=== PATIENT | male | born 1990 | race Caucasian/White ===

== ENCOUNTER 2019-10-19 19:47 | Emergency (ER) | payer SELFPAY ==
[~2019-10-19] VITALS: Ht 185.4 cm; Wt 107.0 kg
--- NOTE | 2019-10-19 19:50 | PHYS DOC ---
Past History Past Medical History: Cancer Past Medical History Osteosarcoma of Lt Leg- S/P Chemo, Radiation and Amputation Past Surgical History: Cancer Surgery Past Surgical History Amputation Lt leg BK- age 18 Smoking: Cigarettes Alcohol Use: Occasionally Drug Use: Marijuana General Adult HPI: HPI: ".. I feel like I got the flu or something.. not right for a week.. much more short of breath.. to the point.. I ve quit smoking both tobacco.. and marijuana... .. I just really short of breath... with any activity..." Patient is a 29 year old male who presents with above hx and complaints of generalized malaise, myalgia, arthralgia, dyspnea, nonproductive cough, and generalized arthralgia. Patient does smoke tobacco marijuana which he has stopped because of dyspnea. Patient has significant medical history of a left lower leg soft tissue tumor that underwent chemo, radiation and eventual amputation of the left lower leg at age 18. Patient denies any history of DVT but there is a history of DVTs with mother and and a great uncle. Patient does not vape. Patient does not do seasonal flu shots. No recent travel outside the [place] area. No history of specific ill contacts. No history immunosuppression. Review of Systems: Review of Systems: Constitutional: Complains of fever or chills Eyes: Denies change in visual acuity HENT: Denies nasal congestion or sore throat Respiratory: Complaints of cough and shortness of breath Cardiovascular: Denies chest pain or edema GI: Denies abdominal pain, , vomiting, bloody stools or diarrhea . Complains of nausea : Denies dysuria Musculoskeletal: Denies back pain or joint pain Integument: Denies rash Neurologic: Denies headache, focal weakness or sensory changes Endocrine: Denies polyuria or polydipsia Lymphatic: Denies swollen glands Psychiatric: Denies depression or anxiety Heart Score: Risk Factors: Risk Factors: DM, Current or recent (<one month) smoker, HTN, HLP, family history of CAD, obesity. Risk Scores: Score 0 - 3: 2.5% MACE over next 6 weeks - Discharge Home Score 4 - 6: 20.3% MACE over next 6 weeks - Admit for Clinical Observation Score 7 - 10: 72.7% MACE over next 6 weeks - Early Invasive Strategies Family History: Family History: DVT with mother and great uncle Current Medications: Current Meds: See nursing for home medications Allergies: Allergies: No known drug allergies Physical Exam: PE: Constitutional: Well developed, well nourished, no acute distress, non-toxic appearance. [] HENT: Normocephalic, atraumatic, bilateral external ears normal, oropharynx moist, mild postnasal drainage and erythremia, no oral exudates, nose slightly swollen turbinates and clear rhinorrhea Eyes: PERRLA, EOMI, conjunctiva normal, no discharge. [] Neck: Normal range of motion, no tenderness, supple, no stridor. [] Cardiovascular:Heart rate regular rhythm, no murmur [] Lungs & Thorax: Bilateral breath sounds equal at apex with few scattered wheezes throughout on auscultation [] Abdomen: Bowel sounds normal, soft, no tenderness, no masses, no pulsatile masses. [] Skin: Warm, dry, no erythema, no rash. [] Back: No tenderness, no CVA tenderness. [] Extremities: No tenderness, no cyanosis, no clubbing, ROM intact, no edema. Below the knee amputation left leg. No obvious cording in right leg. Neurologic: Alert and oriented X 3, normal motor function, normal sensory function, no focal deficits noted. [] Psychologic: Affect anxious, judgement normal, mood normal. [] EKG: EKG: My interpretation of EKG shows a sinus rhythm at 66 bpm. No findings of acute morphology. [] Radiology/Procedures: Radiology/Procedures: Interpretation chest x-ray shows no acute cardiopulmonary findings. [] [place] [id number] IMAGING REPORT Signed PATIENT: RYAN GOMEZ ACCOUNT: [id number] : 1990 LOCATION: ER AGE: 29 SEX: M EXAM STATUS: REG ER ORD. PHYSICIAN: ESVIN VILLANUEVA MD REASON: Dyspnea, Hx Osteo/sarco/tumor leg-amputation at 18, [id number],100ml PROCEDURE: CT ANGIOGRAPHY CHEST EXAM: CT chest with contrast - pulmonary embolus protocol CLINICAL HISTORY: Dyspnea, Hx Osteo/sarco/tumor leg-amputation. COMPARISON: None. TECHNIQUE: CT of the chest following the administration of intravenous contrast during the pulmonary arterial phase. Axial, coronal and sagittal reformatted images were generated including MIP images. ---PQRS compliance statement - One or more of the following individualized dose reduction techniques were utilized for this study: 1. Automated exposure control 2. Adjustment of the mA and/or kV according to patient size 3. Use of iterative reconstruction technique--- FINDINGS: CHEST: Diagnostic quality: Suboptimal. Pulmonary emboli: No pulmonary emboli to the level of the lobar branches. More peripheral vessels are not well assessed. Right heart strain: None Pulmonary arteries: Normal in caliber. Heart is not enlarged. No pericardial effusion. No pleural effusion or pneumothorax. Trace bilateral gynecomastia. Visualized thyroid is unremarkable. No mediastinal or hilar lymphadenopathy by size criteria. No axillary lymphadenopathy. No suspicious lung nodule or mass is seen. No lobar consolidation. Visualized Upper abdomen: Hepatic hypoattenuation likely fatty liver. A 1.9 x 1.4 cm portacaval lymph node (series 4 image 149) is seen. Bones: Osseous structures are grossly unremarkable. IMPRESSION: 1. Suboptimal contrast bolus. No pulmonary embolus is seen to the level of the lobar branches. More peripheral vessels are not well assessed. 2. No suspicious lung nodule or mass is seen. No lobar consolidation. 3. Mildly enlarged portacaval lymph node is seen in the upper abdomen. This is nonspecific and can be correlated with prior abdominal imaging if available. Otherwise CT abdomen and pelvis can be performed. Electronically signed by: Iraj Johnson MD (10/19/2019 11:28 PM) [facility] DICTATED AND SIGNED BY: IRAJ JOHNSON MD DATE: 10/19/19 8391 CC: ESVIN VILLANUEVA MD; PCP,NO ~ Course & Med Decision Making: Course & Med Decision Making Pertinent Labs and Imaging studies reviewed. (See chart for details) Patient follow-up primary care. Patient self isolate. Patient practice social distancing seen. Patient reviewed ED record with primary care. Patient practice safe sex. Patient to continue doxycycline 100 mg twice a day. Patient follow-up cultures. Patient push fruit juices. Patient return if any concerns. Impression: 1. Dyspnea 2. Viral syndrome 3. Hypokalemia 3.3 4. Elevated ALT 73 5. History of marijuana and tobacco use 6. 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 Urinary tract infection- ( Will cover STD) 8. Adenopathy - Abd. [] Dragon Disclaimer: Dragon Disclaimer: This electronic medical record was generated, in whole or in part, using a voice recognition dictation system. Departure Departure: Disposition: HOME/RESIDENCE PRIOR TO ADM Condition: STABLE Scripts Albuterol Sulfate (VENTOLIN HFA INHALER) 18 Gm Hfa.aer.ad 2 PUFF IH PRN Q4HRS PRN for FOR ASTHMA for 30 Days, INHALER 0 Refills Prov: ESVIN VILLANUEVA MD 10/19/19 Doxycycline Hyclate (DOXYCYCLINE HYCLATE) 100 Mg Capsule 100 MG PO BID for bronchitis and pyuria for 14 Days, #28 CAP Prov: ESVIN VILLANUEVA MD 10/19/19 [place] Disclaimer This chart was dictated in whole or in part using Voice Recognition software in a busy, high-work load, and often noisy Emergency Department environment. It may contain unintended and wholly unrecognized errors or omissions. ESVIN VILLANUEVA MD Oct 19, 2019 19:50
[2019-10-19] MEDS ORDERED: CONTRAST GIVEN MC PRN (22:15)
[2019-10-19 22:22] LABS: BASO % 0 % (0-3); EOS % 0 % (0-3); HEMATOCRIT 47.8 % (39.0-53.0); HEMOGLOBIN 16.7 g/dL (13.0-17.5); LYMPH # 1.6 x10^3/uL (1.0-4.8); LYMPH % 24 % (24-48); MEAN CORPUSCULAR HEMOGLOBIN 31 pg (25-35); MEAN CORPUSCULAR HGB CONC 35 g/dL (31-37); MEAN CORPUSCULAR VOLUME 88 fL (79-100); MONO # 0.5 x10^3/uL (0.0-1.1); MONO % 8 % (0-9); NEUT # 4.6 x10^3uL (1.8-7.7); NEUT % 68 % (31-73); PLATELET COUNT 204 x10^3/uL (140-400); RED BLOOD COUNT 5.45 x10^6/uL (4.30-5.70); RED CELL DISTRIBUTION WIDTH 13.3 % (11.5-14.5); WHITE BLOOD COUNT 6.8 x10^3/uL (4.0-11.0)
[2019-10-19 22:28] LABS: AMPHETAMINE/METHAMPHETAMINE NEG (NEG); BARBITURATES NEG (NEG); BENZODIAZEPINES NEG (NEG); CANNABINOIDS POS (NEG); COCAINE NEG (NEG); METHADONE NEG (NEG); OPIATES NEG (NEG); PHENCYCLIDINE NEG (NEG)
[2019-10-19] MEDS ORDERED: IOHEXOL 350 MG/ML 100 ML VIAL. IV ONE (22:30)
[2019-10-19] MEDS ORDERED: IPRATRPIUM/ALBUTEROL 0.5/2.5MG 3 ML NEBU. NEB ONE (22:30)
[2019-10-19] MEDS ORDERED: IV RINGERS SOLUTION,LACTATED 1,000 ML IV SCH (22:30)
[2019-10-19 22:36] LABS: CALCIUM 8.8 mg/dL (8.5-10.1); CREATININE 0.8 mg/dL (0.7-1.3); GFR 115.1; POTASSIUM 3.3 mmol/L (3.5-5.1)
[2019-10-19 22:38] LABS: BACTERIA,URINE 0 /HPF (0-FEW); BILIRUBIN,URINE NEG (NEG); CLARITY,URINE HAZY; COLOR,URINE YELLOW; GLUCOSE,URINE NEG (NEG); NITRITE,URINE NEG (NEG); SQUAMOUS EPITHELIAL CELL,UR FEW /LPF; UROBILINOGEN,URINE 0.2 mg/dL (0.2 mg/dL); WBC,URINE 20-40 /HPF (0-4)
[2019-10-19 22:48] LABS: DIRECT BILIRUBIN 0.1 mg/dL (0.0-0.2); INFLUENZA A PATIENT NEGATIVE (NEGATIVE); INFLUENZA B PATIENT NEGATIVE (NEGATIVE); TOTAL BILIRUBIN 0.4 mg/dL (0.2-1.0); TOTAL PROTEIN 7.7 g/dL (6.4-8.2)
--- NOTE | 2019-10-19 23:21 | RAD ---
EXAM: PA and Lateral Views of the Chest DATE: 10/19/2019 9:19 PM INDICATION: Dyspnea Hx Osteo/sarco/tumor leg-amputation COMPARISON: No Prior FINDINGS: The heart is not enlarged. Mediastinal and hilar contours are normal. No focal parenchymal airspace opacity. No pleural effusion or pneumothorax. IMPRESSION: 1. No radiographic evidence for acute cardiopulmonary process. Electronically signed by: Iraj Johnson MD (10/19/2019 11:19 PM) [facility]
[2019-10-19] MEDS ORDERED: ALBU2.5V8 IH (23:25)
[2019-10-19] MEDS ORDERED: DOXY100C2 PO (23:25)
[2019-10-19] MEDS ORDERED: POTASSIUM CHLORIDE 20 MEQ TABLET.ER. PO ONE (23:30)
[2019-10-19] MEDS ORDERED: metroNIDAZOLE 500 MG TABLET PO ONE (23:30)
[2019-10-19] MEDS ORDERED: AZITHROMYCIN 250 MG TABLET. PO ONE (23:30)
[2019-10-19] MEDS ORDERED: ONDANSETRON PF 4 MG/2 ML VIAL. IVP ONE (23:30)
--- NOTE | 2019-10-19 23:30 | RAD ---
EXAM: CT chest with contrast - pulmonary embolus protocol CLINICAL HISTORY: Dyspnea, Hx Osteo/sarco/tumor leg-amputation. COMPARISON: None. TECHNIQUE: CT of the chest following the administration of intravenous contrast during the pulmonary arterial phase. Axial, coronal and sagittal reformatted images were generated including MIP images. ---PQRS compliance statement - One or more of the following individualized dose reduction techniques were utilized for this study: 1. Automated exposure control 2. Adjustment of the mA and/or kV according to patient size 3. Use of iterative reconstruction technique--- FINDINGS: CHEST: Diagnostic quality: Suboptimal. Pulmonary emboli: No pulmonary emboli to the level of the lobar branches. More peripheral vessels are not well assessed. Right heart strain: None Pulmonary arteries: Normal in caliber. Heart is not enlarged. No pericardial effusion. No pleural effusion or pneumothorax. Trace bilateral gynecomastia. Visualized thyroid is unremarkable. No mediastinal or hilar lymphadenopathy by size criteria. No axillary lymphadenopathy. No suspicious lung nodule or mass is seen. No lobar consolidation. Visualized Upper abdomen: Hepatic hypoattenuation likely fatty liver. A 1.9 x 1.4 cm portacaval lymph node (series 4 image 149) is seen. Bones: Osseous structures are grossly unremarkable. IMPRESSION: 1. Suboptimal contrast bolus. No pulmonary embolus is seen to the level of the lobar branches. More peripheral vessels are not well assessed. 2. No suspicious lung nodule or mass is seen. No lobar consolidation. 3. Mildly enlarged portacaval lymph node is seen in the upper abdomen. This is nonspecific and can be correlated with prior abdominal imaging if available. Otherwise CT abdomen and pelvis can be performed. Electronically signed by: Iraj Johnson MD (10/19/2019 11:28 PM) [facility]
--- NOTE | 2019-10-19 23:44 | EKG ---
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
[2019-10-19] MEDS ORDERED: IV NORMAL SALINE 50ML 50 ML ONE (23:55)
[2019-10-19] MEDS ORDERED: cefTRIAXone SODIUM 1 GM VIAL ONE (23:56)
[2019-10-20 01:02] VITALS: BP 126/72
== END 2019-10-20 01:05 | disposition home or self-care (01) ==
LOC: ER 19:47
DX: B34.9 Viral infection, unspecified (principal); E87.6 Hypokalemia; R74.8 Abnormal levels of other serum enzymes; N39.0 Urinary tract infection, site not specified; R59.0 Localized enlarged lymph nodes; F17.210 Nicotine dependence, cigarettes, uncomplicated; F12.10 Cannabis abuse, uncomplicated; Z89.512 Acquired absence of left leg below knee
CPT/HCPCS: 36415; 71046; 71275; 80048; 80076; 80307; 81001; 82550; 83690; 83735; 83880; 84443; 84484; 85025; 85379; 85610; 85730; 87070; 87086; 87491; 87591; 87804; 87880; 93005; 94640; 96365; 96375; 99285; J0456; J0696; J2405; J7120; Q9967